=== PATIENT | female | born 1955 | race Caucasian/White ===

== ENCOUNTER 2018-11-12 15:45 | Inpatient (IN) | payer MEDICARE, MEDICAID ==
[2018-11-12] VITALS (390 sets, daily range): BP systolic 108–137; BP diastolic 52–66; PULSE 109–120; TEMP 98–98.2; O2SAT 80–100
[~2018-11-12] VITALS: Ht 165.1 cm; Wt 82.8 kg
[~2018-11-12 15:45] MED LIST: ALDACTONE PO; APRESOLINE 25MG25 MG PO; ASPIRIN 32325 MG/TAB PO; BUMEX PO; CYMBALTA 30MG30 MG PO; CYMBALTA PO; DAZIDOX10 MG PO; DESYREL 100MG100 MG PO; DOLOPHINE PO; FORT1000TA PO; JANUMET 1000 MG1 TA1 PO; JANUVIA 100MG100 MG PO; LORTAB 10/500 51 TAB PO; MILK OF MA400 MG/52 PO; MORPHINE 1515 MG/TAB PO; NEURONTIN300 MG/CAP PO; NORCO 325 MG-7.1 TAB PO; POTASSIMIN75 MG PO; PRAVACHOL 40MG40 MG PO; PRIL40; PRILOSEC 20MG20 MG PO; PRINIVIL10 MG PO; RT SPIRIVA18 MCG IH; SENOKOT8.6 MG PO; SPIRIVA18 MCG IH; VANCOCIN HCL1 GM IV; VENTOLIN0.09 MG IH; ZOFRAN 4MG T4 MG/TAB PO
--- NOTE | 2018-11-12 16:40 | NUR ---
RECEIVED TELEPHONE REPORT FROM SALEMHARVEY RN. NOTED PT TO HAVE LEFT VIA AMBULANCE AT 1632. AWAITING ARRIVAL OF PT.
--- NOTE | 2018-11-12 17:09 | NUR ---
DIGITAL PERFORMANCE ANALYST CALLED REPORT TO RN.
--- NOTE | 2018-11-12 17:25 | NUR ---
PT ARRIVED VIA STRETCHER ON 6L VIA NC. PT APPEARS TO BE IN RESP DISTRESS BUT IS AWAKE AND TALKING TO STAFF. PT ASSISTED TO ICU BED AND PLACED ON BEDSIDE CONTINUOUS MONITORING. CONTINUED 6L V[address] NC. DR MARION TO BEDSIDE FOR ASSESSMENT, NOTIFIED PHYSICIAN OF URINE UPON ADMISSION, MRSA HX, AND ASSESSMENT BY RN. NEW ORDERS RECEIVED. PT EDUCATED ON URINE COLLECTION AND MRSA SWAB COLLECTION, VERBALIZED UNDERSTANDING AND COOPERATIVE WITH CARE.
[2018-11-12 18:16] LABS: ARTERIAL BLD GAS O2 SATURATION 91.1 % (92-100); ARTERIAL BLD GAS TCO2 CT 12.6; ARTERIAL BLOOD GAS HCO3 11.4 meq/L (22-26); ARTERIAL BLOOD GAS PCO2 36.7 mmHg (35-45); ARTERIAL BLOOD GAS PO2 71.7 mmHg (80-100)
[2018-11-12 18:17] LABS: ARTERIAL BLOOD GAS pH 7.11 (7.35-7.45)
[2018-11-12 18:45] LABS: MEAN CELL VOLUME 93 fl (80.0-100.0); MEAN CORPUSCULAR HGB CONC 32 g/dl (33.0-37.0); PLATELET COUNT 301 K/mm3 (130-400); RED BLOOD COUNT 3.31 M/mm3 (4.10-5.30); REDCELL DISTRIBUTION WIDTH-CV 15.9 % (11.5-14.5)
[2018-11-12 18:49] LABS: HEMATOCRIT 30.8 % (37.0-47.0); HEMOGLOBIN 9.8 g/dl (12.5-16.0); MEAN CORPUSCULAR HEMOGLOBIN 30 pg (27.0-31.0)
[2018-11-12 19:01] LABS: PH 5 (5-8); SQUAMOUS EPITHELIAL None Seen /hpf; URINE APPEARANCE Turbid; URINE BACTERIA None Seen /hpf; URINE BILIRUBIN Negative (NEGATIVE); URINE BLOOD 1+ (NEGATIVE); URINE COLOR Yellow; URINE GLUCOSE Negative (NEGATIVE); URINE KETONE Negative (NEGATIVE); URINE LEUKOCYTE ESTERASE 2+ (NEGATIVE); URINE NITRATE Negative (NEGATIVE); URINE PROTEIN(semi-quant) 2+ (NEGATIVE); URINE RBC >50 /hpf; URINE UROBILINOGEN Negative (NEGATIVE); URINE WBC >50 /hpf
[2018-11-12 19:02] LABS: ALANINE AMINOTRANSFERASE 8 U/L (9-52); ALBUMIN 3.4 gm/dL (3.5-5.0); ALKALINE PHOSPHATASE 103 U/L (50-136); ANION GAP 21 mmol/L (7-16); AST,SGOT 35 U/L (15-37); BILIRUBIN,TOTAL 0.3 mg/dL (0.0-1.0); BLOOD UREA NITROGEN 40 mg/dL (7-17); CALCIUM 7.1 mg/dL (8.4-10.2); CHLORIDE 95 mmol/L (98-107); CREATININE, serum 2.71 (0.52-1.25); GLUCOSE 249 mg/dL (74-106); POTASSIUM 3.2 mmol/L (3.4-5.0); SODIUM 128 mmol/L (137-145); TOTAL PROTEIN 6.8 gm/dL (6.4-8.2)
[2018-11-12 19:09] LABS: CARBON DIOXIDE 12 mmol/L (22-30)
[2018-11-12 19:12] LABS: TROPONIN-I < 0.012 ng/mL (0.000-0.035)
[2018-11-12 19:24] LABS: BAND 4 % (0-10); BURR CELLS 1+; LYMPHOCYTE 3 % (20.0-51.0); NEUTROPHILS 93 % (42.0-75.2); PLATELET ESTIMATE NORMAL (NORMAL)
[2018-11-12 19:25] LABS: ANISOCYTOSIS 1+; HYPOCHROMIA 1+
[2018-11-12 20:06] LABS: COLLECTION METHOD CATHETER
[2018-11-12 22:05] LABS: TROPONIN-I < 0.012 ng/mL (0.000-0.035)
--- NOTE | 2018-11-12 22:44 | NUR ---
1914: Mariana RN with [facility] called and notified regarding Pt's lactic, co2, respiratory status, and electrolytes. States she will notifiy . 1919: called this RN to discuss Pt's status and labs. video'd in to evaluate pt. Multiple orders received for bipap, abx, labs, bicarb drip. 1929: bedside to eval pt and continue with admisison. 1949: Dr. Feliz beside for consult and to evaluate pt. 2016: Start time for intubation. 2019: Propofol 50mg given 2020: Vecuronium 10mg given 2021: Propofol 50mg given 2028: End time of intubation. 7.5 ET tube and 24cm at the lip. Xray called. 2033: Start time for central line placemnet. 2049: End time for triple lumen IJ central line placed. Pt's VSS. Tube placement checked on xray by and increased to 26cm. Will continue to monitor closely.
--- NOTE | 2018-11-12 22:44 | NUR ---
PT INTUBATED AT 2020, INITIAL SETTINGS STARTED PER DR MARVIN
--- NOTE | 2018-11-12 22:50 | NUR ---
ETT ADVANCED 2CM FROM [address] MARVIN
--- NOTE | 2018-11-12 22:53 | NUR ---
2200: Attempted to call Pt's daughter Estella at [phone] but number does not connect. Attempted to call Pt's son Dixon but rang busy multiple times.
[2018-11-13] VITALS (1044 sets, daily range): BP systolic 121–166; BP diastolic 63–89; PULSE 94–106; TEMP 98.3–99.4; O2SAT 87–100
[2018-11-13 01:30] LABS: ARTERIAL BLD GAS O2 SATURATION 96.4 % (92-100); ARTERIAL BLD GAS TCO2 CT 17.3; ARTERIAL BLOOD GAS BASE EXCESS -10.6 (-2-2); ARTERIAL BLOOD GAS HCO3 16.1 meq/L (22-26); ARTERIAL BLOOD GAS PCO2 38.6 mmHg (35-45); ARTERIAL BLOOD GAS PO2 93.1 mmHg (80-100); ARTERIAL BLOOD GAS pH 7.24 (7.35-7.45)
[2018-11-13 01:30] LABS: ARTERIAL BLD GAS O2 SATURATION 98.2 % (92-100); ARTERIAL BLD GAS TCO2 CT 16.7; ARTERIAL BLOOD GAS BASE EXCESS -11.9 (-2-2); ARTERIAL BLOOD GAS HCO3 15.5 meq/L (22-26); ARTERIAL BLOOD GAS PCO2 40.7 mmHg (35-45)
[2018-11-13 01:31] LABS: ARTERIAL BLOOD GAS PO2 130.2 mmHg (80-100)
--- NOTE | 2018-11-13 01:44 | NUR ---
2321: Markell RN with are notified of abg's. Ph 7.19 Co2 40 bicarb 15.5 base excess -11.9 O2 130. States he will notify Dr. Aguila. 2345: Received call from Markell PARK with [facility] stating no changes to vent settings but will repeat ABG per . 0100: Order received from Dr Aguila for Abg at 0115. 0145: Notified Markell PARK with [facility] regarding Abgs. No new orders at this time per . Will continue to [facility].
--- NOTE | 2018-11-13 01:51 | NUR ---
0115: Pt opens eyes to voice. Pt able to follow commands. Pt restless with oral care and suctioning. Propofol increased back to 10mcg/ky/min. Will continue to montior.
[2018-11-13 04:00] LABS: HEMOGLOBIN 9.3 g/dl (12.5-16.0); MEAN CELL VOLUME 91 fl (80.0-100.0); MEAN CORPUSCULAR HEMOGLOBIN 29 pg (27.0-31.0); MEAN CORPUSCULAR HGB CONC 32 g/dl (33.0-37.0); MEAN PLATELET VOLUME 9.8 fl (7.4-10.4); PLATELET COUNT 277 K/mm3 (130-400); RED BLOOD COUNT 3.17 M/mm3 (4.10-5.30); REDCELL DISTRIBUTION WIDTH-CV 15.5 % (11.5-14.5)
[2018-11-13 04:01] LABS: HEMATOCRIT 28.7 % (37.0-47.0)
[2018-11-13 04:10] LABS: ALBUMIN 3.2 gm/dL (3.5-5.0); BILIRUBIN,TOTAL 0.2 mg/dL (0.0-1.0); CALCIUM 6.8 mg/dL (8.4-10.2); CREATININE, serum 2.14 (0.52-1.25); MAGNESIUM 2.2 mg/dL (1.6-2.3); PHOSPHOROUS 3.2 mg/dL (2.5-4.5); POTASSIUM 3.1 mmol/L (3.4-5.0); TOTAL PROTEIN 6.6 gm/dL (6.4-8.2)
[2018-11-13 04:17] LABS: LYMPHOCYTE 5 % (20.0-51.0); NEUTROPHILS 93 % (42.0-75.2)
[2018-11-13 04:18] LABS: ANISOCYTOSIS 1+; HYPOCHROMIA 1+; PLATELET ESTIMATE NORMAL (NORMAL)
--- NOTE | 2018-11-13 04:36 | NUR ---
0345: While turning PT noted that she was awake and attempted to pull out her ET tube. Reoriented Pt to situation but Pt still attempting to pull at lines and tubes.Bp elevated in the 160's. Propofol increase to 15mcg/kg/min. 0355: Pt still restless, breathing over ventilator and coughing. BP in the 150's.Propofol increase to 20 mcg/kg/min. Pt's ET suctioned X2 with moderate amount of secretions. 0415: RT in room to do oral care and suctioning. Pt still breathing over the ventilator. Pt fighting suctioning and oral care. Propofol increased to 25mcg/kg/min. 0440: Pt resting comfortably. PT no longer breathing over the ventilator. BP in the 140's. Will continue to montior.
[2018-11-13 05:19] LABS: ARTERIAL BLD GAS O2 SATURATION 94.8 % (92-100); ARTERIAL BLD GAS TCO2 CT 20.2; ARTERIAL BLOOD GAS BASE EXCESS -6.5 (-2-2); ARTERIAL BLOOD GAS PCO2 37.9 mmHg (35-45); ARTERIAL BLOOD GAS PO2 73.5 mmHg (80-100); ARTERIAL BLOOD GAS pH 7.32 (7.35-7.45)
--- NOTE | 2018-11-13 06:05 | NUR ---
0601: Bg 86. Insulin gtt stopped per protocol. Will recheck BG in 30 per protocol.
--- NOTE | 2018-11-13 08:00 | NUR ---
Vancomycin Initial Dosing Pharmacy Note Ordering provider: Tanika De Paz W., MD Indication/duration: pneumonia Relevant comorbidities: COPD, Nicotine dependence LABS: WBC 19.4, SCr 2.14, CrCl~27, GFR 23 Recommendation: Will give loading dose of Vancomycin 1.75 gm x1 followed by Vancomycin 1.5 gm IV q24h. Pharmacy will continue to monitor and check a Vancomycin trough on 11/16/18. Loading dose: 1.75 grams Maintenance dose: 1.5 grams every 24 hours Trough goal: 15-20 ug/mL
[2018-11-13] MEDS ORDERED: NEURONTIN600 MG/TAB PO (08:44)
[2018-11-13] MEDS ORDERED: VENTOLIN0.09 MG (08:44)
[2018-11-13] MEDS ORDERED: FENTANYL 50MCG TD (08:44)
[2018-11-13] MEDS ORDERED: SPIRIVA RE2.5 MCG/Ac IH (08:44)
[2018-11-13] MEDS ORDERED: PROTONIX 40MG T40 MG PO (08:45)
[2018-11-13] MEDS ORDERED: LEVEMIR FLEX100 U/ML SQ (08:45)
[2018-11-13] MEDS ORDERED: PRINIVIL10 MG PO (08:45)
--- NOTE | 2018-11-13 09:57 | NUR ---
Pt's family/friend contact Estella called to update, call went straight to voicemail, mailbox full and unable to leave message.
--- NOTE | 2018-11-13 10:01 | NUR ---
JERRI attempted to meet with the patient. The patient is on a mechanical ventilator. JERRI attempted to contact the patient's daughter, Esetlla Unger . JERRI could not leave a message the mailbox was full. JERRI will attempt at a later time.
--- NOTE | 2018-11-13 11:00 | NUR ---
Pt's daughter Estella returned calls, updated on pt status and plan of care. Questions invited and answered. Family members do not have any specific visitation plans at this time
[2018-11-13 14:32] LABS: ARTERIAL BLD GAS O2 SATURATION 96.8 % (92-100); ARTERIAL BLD GAS TCO2 CT 18.3; ARTERIAL BLOOD GAS HCO3 17.2 meq/L (22-26); ARTERIAL BLOOD GAS PCO2 34.4 mmHg (35-45); ARTERIAL BLOOD GAS PO2 93.2 mmHg (80-100); ARTERIAL BLOOD GAS pH 7.32 (7.35-7.45)
--- NOTE | 2018-11-13 16:39 | NUR ---
No decrease in sedation needed for Sedation Vacation, pt able to follow all commands appropriatly, hand strength equal bilaterally, lifts and holds head off bed, able to use nonverbal communication to state pt is not experiencing any pain.
[2018-11-14] VITALS (1348 sets, daily range): BP systolic 122–160; BP diastolic 62–92; PULSE 79–140; TEMP 98–99; O2SAT 83–100
[2018-11-14 04:57] LABS: MEAN CELL VOLUME 89 fl (80.0-100.0); MEAN CORPUSCULAR HGB CONC 33 g/dl (33.0-37.0); MEAN PLATELET VOLUME 9.6 fl (7.4-10.4); PLATELET COUNT 315 K/mm3 (130-400); RED BLOOD COUNT 3.07 M/mm3 (4.10-5.30); REDCELL DISTRIBUTION WIDTH-CV 15.7 % (11.5-14.5)
[2018-11-14 05:02] LABS: HEMATOCRIT 27.3 % (37.0-47.0); HEMOGLOBIN 9.1 g/dl (12.5-16.0); MEAN CORPUSCULAR HEMOGLOBIN 30 pg (27.0-31.0)
[2018-11-14 05:06] LABS: CALCIUM 7.1 mg/dL (8.4-10.2); CREATININE, serum 1.21 (0.52-1.25); MAGNESIUM 2.1 mg/dL (1.6-2.3); PHOSPHOROUS 3.6 mg/dL (2.5-4.5); POTASSIUM 3.3 mmol/L (3.4-5.0)
[2018-11-14 05:15] LABS: ARTERIAL BLD GAS O2 SATURATION 98.1 % (92-100); ARTERIAL BLD GAS TCO2 CT 19.4; ARTERIAL BLOOD GAS BASE EXCESS -6.4 (-2-2); ARTERIAL BLOOD GAS HCO3 18.4 meq/L (22-26); ARTERIAL BLOOD GAS PCO2 33.6 mmHg (35-45); ARTERIAL BLOOD GAS pH 7.36 (7.35-7.45)
[2018-11-14 05:16] LABS: LYMPHOCYTE 2 % (20.0-51.0); NEUTROPHILS 98 % (42.0-75.2)
[2018-11-14 05:17] LABS: ANISOCYTOSIS 1+; HYPOCHROMIA 1+; PLATELET ESTIMATE NORMAL (NORMAL)
[2018-11-14 05:18] LABS: ARTERIAL BLOOD GAS PO2 123.5 mmHg (80-100)
--- NOTE | 2018-11-14 05:20 | NUR ---
SEDATION VACATION STARTED. PT ABLE TO OPEN EYES TO VOICE. PT ABLE TO FOLLOW COMMANDS. PT RESTING COMFORTABLY. RT BEDSIDE TO START WEANING TRIAL. PT BECAME TACHYPNIC, TACHYCARDIC, COUGHING, AND VERY RESTLESS. PT TRYINT TO SIT UP IN BED AND ATTEMPTING TO PULL AT ET TUBE. SEDATION VACATION ENDED AND WEANING TRIAL STOPPED. PT HAD TO BE TITRATED BACK TO ORIGINAL DOSES OF PROPOFOL AND FENTNYL. PT NOW RESTING COMFORTABLY. HR BACK TO THE 90S AND RESPIRATIONS 22. WILL CONTINUE TO MONTIOR.
--- NOTE | 2018-11-14 05:30 | NUR ---
Markell RN with [facility] notified of Pt's WBC of 32.5. States he will notify telephone order dispatcher Int[employer]. No new orders received.
--- NOTE | 2018-11-14 06:06 | NUR ---
PT ON DOCUMENTED SETTINGS. PT FAILED WEANING TRIAL, BECAME AGITATED, HR WAS 130, RR WAS IN THE 40'S. NO DISTRESS NOTED. WILL CONTINUE TO MONITOR AND ASSESS AND WILL NOTIFY DAY SHIFT RT OF FAILED TRIAL.
--- NOTE | 2018-11-14 07:30 | NUR ---
MD Tray, Patience,RT and myself in room. Sedation reduced per VORB from MD Tray. 0805 pt awake alert and calm. 0810 pt became severely aggitated and when asked if pt is having anxiety/panic attack pt nodded head yes in agreement. At this time respiratory rate increased to 40-45, SpO2 was 82%, HR>140. Possitive reinforcment and calming strategies did not help calm pt down. Pt was attempting to sit up and pull at ETT. MD Tray notified - TORB to resume sedation to previous rate now. 0820 pt RASS=0
--- NOTE | 2018-11-14 08:36 | NUR ---
CPAP trail sedation titration Fentanyl 0730 decreased to 70mcg/hr. 0738 decreased to 45mcg/hr. 0745 decreaed to 20mcg/hr. 0800 Fentanyl paused Propofol 0730 decreased to 20. 0738 decreased to 15. 0745 decreaed to 10. 0800 paused 0730 RASS -2. 0738 RASS -2. 0745 RASS -1. 0800 RASS 0. 0805 RASS 0. 0810 RASS 0. 0813 RASS +2. 0815 RASS +3 0813 Sedation resumed
--- NOTE | 2018-11-14 11:20 | NUR ---
Vancomycin Follow-up Pharmacy Note Current regimen: Vancomycin 1.5 gm IV q24h LABS: SCr 1.21<-2.14, CrCl~46, GFR 45 Adjustments: Will increase Vancomycin to 1.5 gm IV q12h with improved renal function. Pharmacy to continue to monitor and check Vancomycin trough prior to morning dose on 11/16/18.
--- NOTE | 2018-11-14 11:39 | NUR ---
Pt's daughter Estella called in for an update, she was not interested in recieving education I was attempting to provide relating to her care, specifically mechanical ventilation/VAP. She stated she is not planning on coming in today to visit.
--- NOTE | 2018-11-14 16:30 | NUR ---
JERRI contacted the patient's son-in-law, Blaze . Blaze reports that patient's daughter cannot answer phone while at work. Blaze responded to assessment questions. The patient lives in [place] with her son Dixon Mckeon (JERRI attemtpted to contact Dixon, the phone number was busy then turned off). The patient uses oxygen and wheelchair and the patient does not receive home health services. The patient's PCP is with [facility] and he thinks patient receives medications from [facility]. The patient does not have advanced directives in the EMR. The patient's demographic states she is . Blaze was not sure. He reports he will find out. The patient has two children Dixon and Estella and also has four sisters that live out of state. [employer] will continue to follow to ensure a safe discharge.
--- NOTE | 2018-11-14 18:45 | NUR ---
PT CHANGED TO CPAP AT THIS TIME PER DR. MARVIN FOR ANOTHER TRY AT WEANING. SEDATION HAS BEEN CUT IN HALF BY XAVIER JONES. PT IS TOLERATING IT WELL AT THIS TIME. ALARMS SET AND FUNCTIONING.
--- NOTE | 2018-11-14 18:49 | NUR ---
DECREASED TO 5 OF PS AT THIS TIME PER AT BEDSIDE. SEDATION ALSO LESSONED MORE AT THIS TIME.
[2018-11-15] VITALS (1038 sets, daily range): BP systolic 135–156; BP diastolic 68–78; PULSE 59–120; TEMP 97.6–100; O2SAT 85–100
--- NOTE | 2018-11-15 05:00 | NUR ---
Patient agitated during time to begin sedation vacation, no change done at this time.
[2018-11-15 05:40] LABS: ARTERIAL BLD GAS O2 SATURATION 95.6 % (92-100); ARTERIAL BLD GAS TCO2 CT 20.9; ARTERIAL BLOOD GAS BASE EXCESS -4.7 (-2-2); ARTERIAL BLOOD GAS HCO3 19.9 meq/L (22-26); ARTERIAL BLOOD GAS PO2 82.9 mmHg (80-100); ARTERIAL BLOOD GAS pH 7.37 (7.35-7.45)
[2018-11-15 05:55] LABS: MEAN CELL VOLUME 92 fl (80.0-100.0); MEAN CORPUSCULAR HGB CONC 32 g/dl (33.0-37.0); MEAN PLATELET VOLUME 9.5 fl (7.4-10.4); PLATELET COUNT 357 K/mm3 (130-400); RED BLOOD COUNT 3.18 M/mm3 (4.10-5.30); REDCELL DISTRIBUTION WIDTH-CV 15.9 % (11.5-14.5)
[2018-11-15 06:01] LABS: CALCIUM 8.2 mg/dL (8.4-10.2); CREATININE, serum 0.97 (0.52-1.25); MAGNESIUM 2.1 mg/dL (1.6-2.3); PHOSPHOROUS 2.4 mg/dL (2.5-4.5); POTASSIUM 3.8 mmol/L (3.4-5.0)
[2018-11-15 06:03] LABS: HEMATOCRIT 29.1 % (37.0-47.0); HEMOGLOBIN 9.4 g/dl (12.5-16.0); MEAN CORPUSCULAR HEMOGLOBIN 30 pg (27.0-31.0)
--- NOTE | 2018-11-15 06:10 | NUR ---
Dr. Feliz at bedside, patient sedation started at this time.
--- NOTE | 2018-11-15 07:00 | NUR ---
REPORT RECEIVED FROM XAVIER ARROYO. CARE TAKEN OVER AFTER ALL LINES, GTTS, AND VENT SETTINGS CONFIRMED.
[2018-11-15 07:18] LABS: BAND 4 % (0-10); LYMPHOCYTE 1 % (20.0-51.0); NEUTROPHILS 94 % (42.0-75.2); PLATELET ESTIMATE NORMAL (NORMAL)
--- NOTE | 2018-11-15 11:26 | NUR ---
PAY PER CLICK STRATEGIST student attended clinical rounds with the team. The patient remains on a mechanical ventilator. creative services writer will continue to follow.
--- NOTE | 2018-11-15 16:00 | NUR ---
PATIENT'S SON, KAREN CALLS FOR UPDATE. HE IS UNAWARE THAT THE PATIENT IS INTUBATED AND SEDATED. QUESTIONS ANSWERED. HE GIVES HIS WORK NUMBER TO ME A CONTACT NUMBER. HE DOES NOT HAVE CELL PHONE AT THIS TIME.
--- NOTE | 2018-11-15 19:00 | NUR ---
XAVIER GREGORY GIVEN REPORT AT BEDSIDE. CARE TURNED OVER AT THIS TIME.
--- NOTE | 2018-11-15 20:00 | NUR ---
PT WILL OCCASIOANLLY WAKE UP TO VOICE, OPENS HER EYES BUT DOES NOT FOLLOW COMMANDS. WILL MONITOR.
[2018-11-16] VITALS (779 sets, daily range): BP systolic 122–183; BP diastolic 56–95; PULSE 62–110; TEMP 97.6–99; O2SAT 81–100
--- NOTE | 2018-11-16 | NUR ---
PT AWAKE AND RESTLESS, FOLLOWS COMMANDS AND ABLE TO NOD AND SHAKE HEAD WITH SIMPLE QUESTIONS. PT NODDED WHEN ASKED IF SHE WANNA GET REPOSITIONED AND IF SHE'S UNCOMFORTABLE. PT REPOSITIONED AND FEBTANYL INCREASED.
[2018-11-16 04:13] LABS: ARTERIAL BLD GAS TCO2 CT 21.6; ARTERIAL BLOOD GAS BASE EXCESS -3.8 (-2-2); ARTERIAL BLOOD GAS HCO3 20.6 meq/L (22-26); ARTERIAL BLOOD GAS PCO2 34.5 mmHg (35-45); ARTERIAL BLOOD GAS PO2 57.3 mmHg (80-100); ARTERIAL BLOOD GAS pH 7.39 (7.35-7.45)
--- NOTE | 2018-11-16 05:45 | NUR ---
PS 8/5 PEEP WITH fIO2 30% WAS DONE @ 0530. PT VT 543, RR 20, HR 101, RBI 40. PT IS JASON. WEANING WELL, AND RESTING .
[2018-11-16 06:14] LABS: MEAN CELL VOLUME 92 fl (80.0-100.0); MEAN CORPUSCULAR HGB CONC 32 g/dl (33.0-37.0); MEAN PLATELET VOLUME 9.5 fl (7.4-10.4); PLATELET COUNT 366 K/mm3 (130-400); RED BLOOD COUNT 3.39 M/mm3 (4.10-5.30); REDCELL DISTRIBUTION WIDTH-CV 16.3 % (11.5-14.5)
[2018-11-16 06:23] LABS: HEMATOCRIT 31.3 % (37.0-47.0); HEMOGLOBIN 9.9 g/dl (12.5-16.0); MEAN CORPUSCULAR HEMOGLOBIN 29 pg (27.0-31.0)
[2018-11-16 06:30] LABS: CALCIUM 8.8 mg/dL (8.4-10.2); CREATININE, serum 0.83 (0.52-1.25); POTASSIUM 3.8 mmol/L (3.4-5.0)
[2018-11-16 07:21] LABS: PLATELET ESTIMATE NORMAL (NORMAL)
[2018-11-16 07:23] LABS: ANISOCYTOSIS 1+
[2018-11-16 07:48] LABS: BAND 8 % (0-10); LYMPHOCYTE 9 % (20.0-51.0); METAMYELOCYTE 1 % (0-0); NEUTROPHILS 80 % (42.0-75.2)
--- NOTE | 2018-11-16 10:22 | NUR ---
Vancomycin Follow-up Pharmacy Note Current regimen: 1.5 g IV q12h Vancomycin trough: 33 Adjustments: decrease dose to 1.5 g IV q24h Recheck trough on 11/17 @9723
--- NOTE | 2018-11-16 19:05 | NUR ---
Received report from XAVIER Metcalf.
[2018-11-17] VITALS (667 sets, daily range): BP systolic 114–156; BP diastolic 59–83; PULSE 61–74; TEMP 98.2–98.7; O2SAT 88–100
[2018-11-17 05:05] LABS: MEAN CELL VOLUME 93 fl (80.0-100.0); MEAN CORPUSCULAR HGB CONC 31 g/dl (33.0-37.0); MEAN PLATELET VOLUME 9.4 fl (7.4-10.4); PLATELET COUNT 392 K/mm3 (130-400); RED BLOOD COUNT 3.32 M/mm3 (4.10-5.30); REDCELL DISTRIBUTION WIDTH-CV 16.6 % (11.5-14.5)
[2018-11-17 05:08] LABS: HEMOGLOBIN 9.7 g/dl (12.5-16.0); MEAN CORPUSCULAR HEMOGLOBIN 29 pg (27.0-31.0)
[2018-11-17 05:13] LABS: ARTERIAL BLD GAS O2 SATURATION 95.4 % (92-100); ARTERIAL BLD GAS TCO2 CT 20.9; ARTERIAL BLOOD GAS BASE EXCESS -4.7 (-2-2); ARTERIAL BLOOD GAS HCO3 19.8 meq/L (22-26); ARTERIAL BLOOD GAS PCO2 34.7 mmHg (35-45); ARTERIAL BLOOD GAS PO2 81.6 mmHg (80-100); ARTERIAL BLOOD GAS pH 7.38 (7.35-7.45)
[2018-11-17 05:17] LABS: CALCIUM 8.9 mg/dL (8.4-10.2); CREATININE, serum 0.85 (0.52-1.25); MAGNESIUM 1.9 mg/dL (1.6-2.3); PHOSPHOROUS 3.6 mg/dL (2.5-4.5); POTASSIUM 4.2 mmol/L (3.4-5.0)
--- NOTE | 2018-11-17 05:34 | NUR ---
Patient began sedation vacation at 0456 to coincide with CPAP trial. Patient's sedation was resumed at 0523.
--- NOTE | 2018-11-17 07:18 | NUR ---
Report recieved from Jordana PARK. Medication drips and lines verified. Call light at side. Offers no S/S discomfort at this time
--- NOTE | 2018-11-17 07:18 | NUR ---
Gave report to XAVIER Stahl.
--- NOTE | 2018-11-17 09:12 | NUR ---
RASS score continues to be -3, unable to arouse patient and no response to tactile/painful stim. Propofol and Fentanyl decreased
[2018-11-17 09:26] LABS: ANISOCYTOSIS 1+; BAND 9 % (0-10); LYMPHOCYTE 9 % (20.0-51.0); NEUTROPHILS 76 % (42.0-75.2); PLATELET ESTIMATE INCREASED (NORMAL)
--- NOTE | 2018-11-17 09:30 | NUR ---
Daughter and son-in-law here for visit. Updates given and POC reviewed. Spoke with them about plans for extubation vs trach this coming week and also spoke with them about rehab vs comfort care, both voice understanding and very much like to be involved in any family meetings.
--- NOTE | 2018-11-17 10:30 | NUR ---
RASS score continues to be -3, Propofol and Fentanyl decreased again per orders. Unable to stimulate/arouse patient. Will continue to monitor.
--- NOTE | 2018-11-17 10:37 | NUR ---
Critical Vancomycin trough called to this RN. Gómez in Pharmacy notified, has already adjusted Vanc dose. Hold this mornings dose and resume dosing tonight and we will recheck level tomorrow. 1150 Dr. Blackwell notified of critical trough and Vanc changes, states ok with pharmacy changes.
--- NOTE | 2018-11-17 12:20 | NUR ---
Repositioned with help of PT. Noted to have indention to left ring finger from monitor lines. Skin intact, no opening/breakdown noted. Will monitor for improvement.
--- NOTE | 2018-11-17 16:41 | NUR ---
Patient opens eyes when name called. Does follow commands, but is slow to react. Indentation to left ring finger resolved, but does continue to have edema to bilateral hands. Cath care done and moisture barrier cream applied to hola area. Patient squeezes legs together when RN attempts to provide hola care.
--- NOTE | 2018-11-17 17:00 | NUR ---
Sedation vacation started at this time. Will monitor.
--- NOTE | 2018-11-17 17:30 | NUR ---
Patient restless and increased heart rate, sedation returned to previous setting. Will monitor for sedation goal or RASS -1 to -2.
--- NOTE | 2018-11-17 19:35 | NUR ---
Report received from Maribeth Cartagena RN.
--- NOTE | 2018-11-17 19:50 | NUR ---
Report given to [place] PARK
--- NOTE | 2018-11-17 20:00 | NUR ---
Pt assessment complete. Pt resting in bed at this time. Will open eyes although will not follow any commands or make eye contact with staff upon verbal cueing.
[2018-11-18] VITALS (634 sets, daily range): BP systolic 108–147; BP diastolic 58–83; PULSE 66–85; TEMP 98.2–98.5; O2SAT 94–100
--- NOTE | 2018-11-18 04:00 | NUR ---
Intermittently pt has been observed making yawning motions with mouth and moving jaw in a chewing motion with tube along with coughing. Pt continues to not follow verbal cues.
--- NOTE | 2018-11-18 05:00 | NUR ---
Attempted sedation vacation for smart care trial. Pt continuously coughed through out with shaking of the legs. Would not follow commands during smart care. First attempted to decrease Propofol to 35 mcg/kg/min and then ended up decreasing to 25 mcg/kg/min due to no response.
[2018-11-18 05:04] LABS: ARTERIAL BLD GAS O2 SATURATION 96.4 % (92-100); ARTERIAL BLOOD GAS HCO3 20.1 meq/L (22-26); ARTERIAL BLOOD GAS PCO2 29.5 mmHg (35-45); ARTERIAL BLOOD GAS PO2 85.9 mmHg (80-100); ARTERIAL BLOOD GAS pH 7.45 (7.35-7.45)
[2018-11-18 06:11] LABS: MEAN CELL VOLUME 94 fl (80.0-100.0); MEAN CORPUSCULAR HGB CONC 32 g/dl (33.0-37.0); MEAN PLATELET VOLUME 9.6 fl (7.4-10.4); PLATELET COUNT 419 K/mm3 (130-400); RED BLOOD COUNT 3.25 M/mm3 (4.10-5.30); REDCELL DISTRIBUTION WIDTH-CV 16.7 % (11.5-14.5)
[2018-11-18 06:15] LABS: HEMATOCRIT 30.4 % (37.0-47.0); HEMOGLOBIN 9.7 g/dl (12.5-16.0); MEAN CORPUSCULAR HEMOGLOBIN 30 pg (27.0-31.0)
[2018-11-18 06:21] LABS: CALCIUM 8.9 mg/dL (8.4-10.2); CREATININE, serum 0.81 (0.52-1.25); POTASSIUM 4.3 mmol/L (3.4-5.0)
[2018-11-18 06:39] LABS: ANISOCYTOSIS 1+; BAND 7 % (0-10); LYMPHOCYTE 7 % (20.0-51.0); METAMYELOCYTE 6 % (0-0); NEUTROPHILS 78 % (42.0-75.2); PLATELET ESTIMATE INCREASED (NORMAL)
--- NOTE | 2018-11-18 07:15 | NUR ---
Vancomycin Follow-up Pharmacy Note Current regimen: vancomycin 1.5G q24h Vancomycin trough: 27.8 Adjustments: hold evening dose 11/17. restart 106 AM at reduced dose. Vancomycin 1.25G q24h. next trough 11/20/18 @0930.
--- NOTE | 2018-11-18 07:30 | NUR ---
Report provided to Jonelle Cancino RN
[2018-11-18 10:22] LABS: PATHOLOGY DIFF REVIEW OK +
--- NOTE | 2018-11-18 19:00 | NUR ---
Bedside report provided to oncoming shift. Theodora has rested throughout day on vent while propofol slowly weaned off to change to Precedex. Tolerates this extremely well. She opens eyes, nods yes and shakes head no appropriately to questions. Nods understanding of plan to retry weaning parameters in AM. SPO2 has been mid to high 90s throughout shift. Minimal secretions from OETT. Patient indicates she has a very sensitive gag reflex and coughing may be due to this. Discussed use of cetacaine with weaning in am with hospitalist who orders use prn. Phone update provided to daughter. Questions addressed.
[2018-11-19] VITALS (810 sets, daily range): BP systolic 122–214; BP diastolic 59–99; PULSE 54–78; TEMP 97.5–98.7; O2SAT 60–100
[2018-11-19 05:16] LABS: ARTERIAL BLD GAS O2 SATURATION 95.5 % (92-100); ARTERIAL BLD GAS TCO2 CT 24.7; ARTERIAL BLOOD GAS BASE EXCESS -0.6 (-2-2); ARTERIAL BLOOD GAS HCO3 23.5 meq/L (22-26); ARTERIAL BLOOD GAS PCO2 36.6 mmHg (35-45); ARTERIAL BLOOD GAS PO2 80.8 mmHg (80-100); ARTERIAL BLOOD GAS pH 7.43 (7.35-7.45)
[2018-11-19 06:03] LABS: ALBUMIN 3.3 gm/dL (3.5-5.0); BILIRUBIN,TOTAL 0.7 mg/dL (0.0-1.0); CALCIUM 9.1 mg/dL (8.4-10.2); CREATININE, serum 0.74 (0.52-1.25); MAGNESIUM 2.1 mg/dL (1.6-2.3); PHOSPHOROUS 5.3 mg/dL (2.5-4.5); POTASSIUM 4.3 mmol/L (3.4-5.0); TOTAL PROTEIN 6.3 gm/dL (6.4-8.2)
[2018-11-19 06:09] LABS: PRE ALBUMIN 34.2 mg/dL (17.6-36.0)
--- NOTE | 2018-11-19 06:34 | NUR ---
ONCE SEDATION CUT IN HALF. PT ABLE TO FOLLOW COMMANDS BUT STILL LETHARGIC. SEDATION THEN CUT IN HALF AGAIN AT THE BEGINING OF VENT WEANING TRIAL. PRECEDEX TO 0.15MCG/KG/HR 3.4ML AND FENTYNL 25MCG/HR 1.3ML. PT IS AWAKE AND FOLLOWING COMMANDS. PT LEFT ON WEANING TRIAL. WILL LEAVE SEDATION AT CURRENT RATE LONG SHE TOLERATES.
[2018-11-19 08:08] LABS: MEAN CELL VOLUME 95 fl (80.0-100.0); MEAN CORPUSCULAR HGB CONC 31 g/dl (33.0-37.0); MEAN PLATELET VOLUME 9.7 fl (7.4-10.4); PLATELET COUNT 411 K/mm3 (130-400); RED BLOOD COUNT 3.35 M/mm3 (4.10-5.30); REDCELL DISTRIBUTION WIDTH-CV 16.8 % (11.5-14.5)
[2018-11-19 08:13] LABS: HEMATOCRIT 31.7 % (37.0-47.0); HEMOGLOBIN 9.9 g/dl (12.5-16.0); MEAN CORPUSCULAR HEMOGLOBIN 30 pg (27.0-31.0)
[2018-11-19 09:18] LABS: BAND 6 % (0-10); LYMPHOCYTE 7 % (20.0-51.0); NEUTROPHILS 82 % (42.0-75.2); PLATELET ESTIMATE INCREASED (NORMAL)
--- NOTE | 2018-11-19 20:00 | NUR ---
Patient sitting in recliner watching TV, denies pain. Updated on POC. Will continue to monitor patient.
[2018-11-20] VITALS (698 sets, daily range): BP systolic 159–205; BP diastolic 74–97; PULSE 81–113; TEMP 97.7–98.7; O2SAT 56–100
[2018-11-20 04:55] LABS: HEMATOCRIT 37.9 % (37.0-47.0); MEAN CELL VOLUME 91 fl (80.0-100.0); MEAN CORPUSCULAR HEMOGLOBIN 29 pg (27.0-31.0); MEAN CORPUSCULAR HGB CONC 32 g/dl (33.0-37.0); MEAN PLATELET VOLUME 9.3 fl (7.4-10.4); PLATELET COUNT 489 K/mm3 (130-400); RED BLOOD COUNT 4.16 M/mm3 (4.10-5.30); REDCELL DISTRIBUTION WIDTH-CV 16.6 % (11.5-14.5)
[2018-11-20 04:58] LABS: HEMOGLOBIN 12.2 g/dl (12.5-16.0)
[2018-11-20 05:03] LABS: CALCIUM 9.4 mg/dL (8.4-10.2); CREATININE, serum 0.61 (0.52-1.25); POTASSIUM 3.2 mmol/L (3.4-5.0)
[2018-11-20 05:15] LABS: ANISOCYTOSIS 1+; HYPOCHROMIA 1+; LYMPHOCYTE 5 % (20.0-51.0); METAMYELOCYTE 2 % (0-0); NEUTROPHILS 89 % (42.0-75.2); PLATELET ESTIMATE INCREASED (NORMAL)
--- NOTE | 2018-11-20 07:00 | NUR ---
Bedside shift report received from XAVIER Lemus. Patient is awake, drowsy, and slow to respond. Full assessment completed. Vital signs stable. Call light placed within reach. Bed in lowest position. Side rails up x3.
--- NOTE | 2018-11-20 08:34 | NUR ---
(11/19) REAL ESTATE REP student attended clinical rounds. The patient is off the mechanical venilator. consulting services manager will continue to monitor.
--- NOTE | 2018-11-20 09:30 | NUR ---
Patient becomes nauseous and has an episode of vomiting. Zofran given per APR.
--- NOTE | 2018-11-20 10:10 | NUR ---
dredge worker attended clinical rounds and met with patient to discuss discharge planning. Patient will begin to work with therapies and be moved to the medical unit, this date. Will await therapy's recommendations for disposition. Worker provided information on home health services and patient states she has had this service in the past. Patient states she has medicare and Medicaid and that the cost of her home medications are covered.
--- NOTE | 2018-11-20 18:00 | NUR ---
Patient has experienced nausea and vomiting a majority of the day. Patient has an episode of emesis at this time that looks different from previous emesis today. This emesis looks dark bile colored and when dumped, suspicious for occult blood. Dr. Birch notified of patient's continuous nausea/vomiting as well as high blood pressure. Lopressor just administered and awaiting results to see if lopressor will bring blood pressure down.
--- NOTE | 2018-11-20 19:15 | NUR ---
Bedside shift report given to XAVIER Lemus.
--- NOTE | 2018-11-20 19:30 | NUR ---
When entering patient's room for report, patient began retching and gagging. A emesis bucket was placed under the patient's mouth but the patient made no attempt to hold onto the basin or keep it in place, was reminded several times to keep mouth above basin and to be cautious when holding it in place to not spill contents (patient's hand was on the side of the basin and slowly pulling it off the side table). Patient had very scant emesis that appeared to show small, dark red flecks. Will provide a sample to lab for occult emesis when adequate amount of sample becomes availible.
[2018-11-21] VITALS (280 sets, daily range): BP systolic 142–178; BP diastolic 68–91; PULSE 66–106; TEMP 98.1–98.8; O2SAT 95–100
[2018-11-21 07:09] LABS: HEMATOCRIT 38.4 % (37.0-47.0); HEMOGLOBIN 11.9 g/dl (12.5-16.0); MEAN CORPUSCULAR HEMOGLOBIN 30 pg (27.0-31.0); MEAN CORPUSCULAR HGB CONC 31 g/dl (33.0-37.0); MEAN PLATELET VOLUME 9.4 fl (7.4-10.4); PLATELET COUNT 488 K/mm3 (130-400); RED BLOOD COUNT 4.01 M/mm3 (4.10-5.30); REDCELL DISTRIBUTION WIDTH-CV 17.2 % (11.5-14.5)
[2018-11-21 07:11] LABS: CALCIUM 9.3 mg/dL (8.4-10.2); CREATININE, serum 0.81 (0.52-1.25); MAGNESIUM 2.1 mg/dL (1.6-2.3); PHOSPHOROUS 5.2 mg/dL (2.5-4.5); POTASSIUM 3.8 mmol/L (3.4-5.0)
[2018-11-21 07:15] LABS: MEAN CELL VOLUME 96 fl (80.0-100.0)
--- NOTE | 2018-11-21 07:20 | NUR ---
Report given to XAVIER Tariq.
[2018-11-21 08:18] LABS: BAND 7 % (0-10); LYMPHOCYTE 7 % (20.0-51.0); METAMYELOCYTE 1 % (0-0); MYELOCYTE 2 % (0-0); PLATELET ESTIMATE NORMAL (NORMAL)
[2018-11-21 08:19] LABS: NEUTROPHILS 80 % (42.0-75.2)
--- NOTE | 2018-11-21 09:00 | NUR ---
patient arrived to room 353 from ICU at this time, she is alert/oriented, we have helped her into the recliner, vital signs stable/ HTN continue, denies pain at this time, lungs CTA/ diminished, she is on 4L. O2 via NC, she refused breakfast/ did have some orange juice and MIlk, Insulin given per Sliding scale
--- NOTE | 2018-11-21 10:00 | NUR ---
Assessment completed, patient arrived to room 353 from ICU around 0830, she is alert/oriented, sitting up in the chair per her request, reports pain contorlled at this time, heart SR on tele/ tachycardic low 100's, lungs CTA dimnished bases/ some fine crackles to RLL but mostly diminished, briscoe cath patent with yellow / hazy urine, patient refusing breakfast, denies other needs or concers at this time
--- NOTE | 2018-11-21 14:36 | NUR ---
PATIENT ON 2LPM, SPO2 AT 94%
[2018-11-22 04:44] VITALS: BP 147/67; PULSE 84; TEMP 99.4
[2018-11-22 06:12] LABS: HEMOGLOBIN 10.9 g/dl (12.5-16.0); MEAN CELL VOLUME 96 fl (80.0-100.0); MEAN CORPUSCULAR HEMOGLOBIN 30 pg (27.0-31.0); MEAN CORPUSCULAR HGB CONC 31 g/dl (33.0-37.0); MEAN PLATELET VOLUME 9.7 fl (7.4-10.4); PLATELET COUNT 411 K/mm3 (130-400); RED BLOOD COUNT 3.65 M/mm3 (4.10-5.30); REDCELL DISTRIBUTION WIDTH-CV 16.4 % (11.5-14.5)
[2018-11-22 06:24] LABS: CALCIUM 8.7 mg/dL (8.4-10.2); CREATININE, serum 0.72 (0.52-1.25); POTASSIUM 3.3 mmol/L (3.4-5.0)
[2018-11-22 07:37] LABS: BAND 7 % (0-10); BASOPHIL 0 % (0-2); EOSINOPHIL 1 % (0-4); LYMPHOCYTE 12 % (20.0-51.0); METAMYELOCYTE 1 % (0-0); MYELOCYTE 1 % (0-0)
[2018-11-22 07:39] LABS: HYPOCHROMIA 3+; PLATELET ESTIMATE NORMAL (NORMAL)
[2018-11-22 07:40] LABS: NEUTROPHILS 74 % (42.0-75.2)
[2018-11-22 08:25] VITALS: BP 111/60; PULSE 109; TEMP 98.2
--- NOTE | 2018-11-22 09:06 | NUR ---
Pt up watching TV until 1AM. Takes her pain med at HS. Once she is sleeping she is difficult to arouse. Denies any needs this AM. Wound on L great toe pad about quarter size open to air. Uneventful night after going to bed. Call light within reach. Will continue to monitor.
--- NOTE | 2018-11-22 09:10 | NUR ---
patient assesment completed, she is alert/oriented, vital signs stable, afebrile/ WBC stil elevated at 30/ on steroids, blood sugars are better control/ levemir dosing was adjusted yesterday, she is up in chair eating breakfast, heart SR/ but remains tachycardic, lungs diminished some fine crackles to RLL, briscoe was removed last evening and patient has been voiding urine well, she is able to pivot tranfer to her wheelchair with stand by assist to get in bathroom, patient feels she is ready to go home, discussed outpatient follow with wound care/ podiatry for her ulcer(s) to her left foot and 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
--- NOTE | 2018-11-22 10:32 | NUR ---
SW met with the patient to review discharge plan and to follow up on home health vs post-acute rehab. The patient reports that she would prefer outpatient therapy at [facility]. She states that it would give her the chance to get out and about and that she would utilize public transport to appointments. She states that she has a walker and wheelchair at home and is independent with tranfers. PT/OT to continue to work with the patient today. The patient is currently using oxygen. She states that she just has noctunal oxygen. SW to continue to follow.
[2018-11-22 11:33] VITALS: BP 152/70; PULSE 82; TEMP 98.4
[2018-11-22 16:30] VITALS: BP 163/80; PULSE 89; TEMP 99.1
--- NOTE | 2018-11-22 16:50 | NUR ---
The patient's daughter, Estella, contacted JERRI to express her concerns with the patient preferring outpatient therapy instead of home health. JERRI then met with the patient to share these concerns and to discuss home health again. The patient reports that she would really rather do outpatient therapy, but would think about it tonight. SW provided the patient with Medicare.gov's list of home health agencies that serve [place]. The patient then informed SW that her daughter would not be able to provide her with transportation and that her son does not have a vehicle. JERRI contacted the patient's insurance, Medicaid, to find out if she has transportation services. The respresentative reports that she does not have transportation benefits. JERRI informed the patient. She states that she normally uses [facility]. SW contacted them. They report that they may be able to provide transport for her, but that SW will need to contact them again tomorrow morning. JERRI informed the patient and will continue to follow.
[2018-11-22 20:51] VITALS: BP 154/66; PULSE 89; TEMP 97.9
--- NOTE | 2018-11-22 21:45 | NUR ---
Report received from XAVIER Tariq. Patient resting in wheelchair. Assessment complete. Lungs CTA. Pulses strong. Right IJ patent. Reports pain 08/22. Requests PRN [place]. Patient reports really "wanting this IV out". Blood sugar was 152. Patient refused PRN Novolog. Denies any further needs at this time. Call light within reach.
[2018-11-23 00:05] VITALS: BP 148/69; PULSE 80; TEMP 97.7
[2018-11-23 04:00] VITALS: BP 96/54; PULSE 88; TEMP 97.5
--- NOTE | 2018-11-23 05:48 | NUR ---
Patient has had uneventful night. Resting in bed. Requested PRN norco for pain x1. Denied any further needs at this time. Call light within reach.
--- NOTE | 2018-11-23 07:02 | NUR ---
Report given to XAVIER Sheth
[2018-11-23 07:25] VITALS: BP 104/47; PULSE 81; TEMP 97.3
[2018-11-23 08:08] LABS: HEMOGLOBIN 11.3 g/dl (12.5-16.0); MEAN CELL VOLUME 97 fl (80.0-100.0); MEAN CORPUSCULAR HEMOGLOBIN 30 pg (27.0-31.0); MEAN CORPUSCULAR HGB CONC 31 g/dl (33.0-37.0); PLATELET COUNT 432 K/mm3 (130-400); RED BLOOD COUNT 3.79 M/mm3 (4.10-5.30); REDCELL DISTRIBUTION WIDTH-CV 16.3 % (11.5-14.5)
[2018-11-23 08:11] LABS: HEMATOCRIT 36.8 % (37.0-47.0)
[2018-11-23 08:13] LABS: CALCIUM 9.1 mg/dL (8.4-10.2); CREATININE, serum 0.82 (0.52-1.25); POTASSIUM 3.8 mmol/L (3.4-5.0)
[2018-11-23 08:47] LABS: BAND 3 % (0-10); EOSINOPHIL 2 % (0-4); LYMPHOCYTE 17 % (20.0-51.0); NEUTROPHILS 74 % (42.0-75.2)
[2018-11-23 08:53] LABS: HYPOCHROMIA 1+; STOMATOCYTE 1+
[2018-11-23 08:56] LABS: PLATELET ESTIMATE NORMAL (NORMAL)
[2018-11-23] MEDS ORDERED: MELATIN 3 MG-11 TAB PO (09:07)
[2018-11-23] MEDS ORDERED: PREDNISONE10 MG PO (09:09)
--- NOTE | 2018-11-23 09:29 | NUR ---
HAD PT LAY IN BED TO REMOVE TLC TO RIGHT IJ. SUTURES REMOVED. HAD PT BEAR DOWN WHILE CATHETER REMOVED. MANUAL PRESSURE HELD TO ENSURE NO BLEEDING. SITE COVERED WITH 2X2 GAUZE AND TEGADERM. ASHLEY NEEDLE REMOVED TO RIGHT CHEST PORT. PT TOLERATED WELL.
--- NOTE | 2018-11-23 09:31 | NUR ---
JERRI attended clinical rounds. The patient reports that she would be open to home health now. JERRI then followed up with the patient. She states that she had home health in the past, but could not remember their name. JERRI contacted the patient's PCP's office. The logistics solution manager informed JERRI that it was [facility]. JERRI informed the patient. The patient chose [facility]. JERRI contacted and faxed a referral to Norma at [facility]. Norma reports that they can accept the patient for services. The patient is to discharge back home with her son today, 11/23, with home health services for snf/PT/OT through [facility]. Transportation to be provided by [facility]. JERRI presented and explained the IM form to the patient. The patient verbalized understanding, signed, and she was provided a copy. No additional needs at this time.
--- NOTE | 2018-11-23 10:02 | NUR ---
DISCHARGE INSTRUCTIONS REVIEWED WITH PT INCLUDING PT HEALTH SUMMARY, PREDNISONE, MELATONIN, RESPIRATORY DISTRESS SYNDROME. AWAITING [facility] AND SON TO ARRIVE TO DISCHARGE PATIENT.
--- NOTE | 2018-11-23 10:10 | NUR ---
PT WHEELED OUT TO EXIT VIA PERSONAL WHEELCHAIR BY HER SON. PT'S BELONGINGS SENT WITH PATIENT.
--- NOTE | 2018-11-24 15:18 | NUR ---
F/U: This SW received a call from [facility] employee Anastasia([phone]) who indicated that she had been trying to contact the [facility] to arrange care with no success. This SW did attempt to call the phone number listed in Patients demographics ([phone]) however the answering machine was a males voice and so no message was left. This SW also did try to contact the patients daughter ([phone]) but the phone number was disconnected. This SW called Anastasia back in informed her that the patient could not be contacted at t his time, but that this SW will leave a message with the SW distribution center supervisor for F/U.
== END 2018-11-23 10:11 | disposition home health service (06) | DRG 870 ==
LOC: ICU 15:45 → MEDICAL 11-21 11:01
PROVIDERS: Family Medicine; Hospitalist; Internal Medicine; Internal Medicine Critical Care Medicine; Internal Medicine Pulmonary Disease; Nurse Practitioner Family; Physician Assistant; ADMIT Student in an Organized Health Care Education/Training Program
PROC: 0BH17EZ Insertion of Endotracheal Airway into Trachea, Via Natural or Artificial Opening (ICD-10-PCS; principal; 2018-11-12)
PROC: 5A1955Z Respiratory Ventilation, Greater than 96 Consecutive Hours (ICD-10-PCS; 2018-11-12)
PROC: 02HV33Z Insertion of Infusion Device into Superior Vena Cava, Percutaneous Approach (ICD-10-PCS; 2018-11-12)
DX: A41.9 Sepsis, unspecified organism (principal); J18.9 Pneumonia, unspecified organism; J96.21 Acute and chronic respiratory failure with hypoxia; I50.31 Acute diastolic (congestive) heart failure; J44.1 Chronic obstructive pulmonary disease with (acute) exacerbation; E87.4 Mixed disorder of acid-base balance; N39.0 Urinary tract infection, site not specified; N17.9 Acute kidney failure, unspecified; I13.0 Hypertensive heart and chronic kidney disease with heart failure and stage 1 through stage 4 chronic kidney disease, or unspecified chronic kidney disease; J44.0 Chronic obstructive pulmonary disease with (acute) lower respiratory infection; E87.1 Hypo-osmolality and hyponatremia; I50.30 Unspecified diastolic (congestive) heart failure; R65.20 Severe sepsis without septic shock; E87.6 Hypokalemia; N18.9 Chronic kidney disease, unspecified; E78.5 Hyperlipidemia, unspecified; G47.00 Insomnia, unspecified; E11.65 Type 2 diabetes mellitus with hyperglycemia; E11.22 Type 2 diabetes mellitus with diabetic chronic kidney disease; E11.42 Type 2 diabetes mellitus with diabetic polyneuropathy; F17.210 Nicotine dependence, cigarettes, uncomplicated; G43.909 Migraine, unspecified, not intractable, without status migrainosus; R11.2 Nausea with vomiting, unspecified; F41.9 Anxiety disorder, unspecified; Z79.82 Long term (current) use of aspirin; Z79.891 Long term (current) use of opiate analgesic; Z90.710 Acquired absence of both cervix and uterus; Z85.3 Personal history of malignant neoplasm of breast; Z88.1 Allergy status to other antibiotic agents
CPT/HCPCS: 99223-AI; 99232-AI; 99233-AI; A4216; J0360; J0692; J1170; J1644; J1815; J1956; J2405; J2550; J2704; J2920; J2930; J3010; J3370; J3480; J7030; J7050; J7512